=== PATIENT | female | born 1980 | race African-American/Black ===

== ENCOUNTER 2016-11-05 05:39 | Emergency (ER) | payer MEDICAID ==
[~2016-11-05] VITALS: Ht 167.6 cm; Wt 93.0 kg
[~2016-11-05 05:39] MED LIST: BELLELX2; IBU800T; OME20GT PO
[2016-11-05] MEDS ORDERED: KETOROLAC TROMETH 60MG/2ML VIAL IM ONE (06:00)
[2016-11-05] MEDS ORDERED: HYDROcodone-ACET 10/325MG TAB PO ONE (06:00)
[2016-11-05 06:20] VITALS: BP 150/103
== END 2016-11-05 06:42 | disposition home or self-care (01) ==
LOC: ER 05:44
DX: S80.02XA Contusion of left knee, initial encounter (principal); M54.9 Dorsalgia, unspecified; M54.2 Cervicalgia; I10 Essential (primary) hypertension; Z88.6 Allergy status to analgesic agent; Z88.8 Allergy status to other drugs, medicaments and biological substances; Z87.442 Personal history of urinary calculi; Z87.440 Personal history of urinary (tract) infections; Z79.899 Other long term (current) drug therapy; V43.52XA Car driver injured in collision with other type car in traffic accident, initial encounter; Y93.89 Activity, other specified; Y92.89 Other specified places as the place of occurrence of the external cause; Y99.8 Other external cause status
CPT/HCPCS: 96372; 99283; J1885

== ENCOUNTER 2016-11-05 09:08 | Emergency (ER) | payer MEDICAID ==
[~2016-11-05] VITALS: Ht 167.6 cm; Wt 93.0 kg
[2016-11-05 09:14] VITALS: BP 168/114
== END 2016-11-05 09:36 | disposition left against medical advice (07) ==
LOC: ER 09:11
DX: H53.8 Other visual disturbances (principal); F41.9 Anxiety disorder, unspecified; Z53.21 Procedure and treatment not carried out due to patient leaving prior to being seen by health care provider; V89.2XXA Person injured in unspecified motor-vehicle accident, traffic, initial encounter; Y93.89 Activity, other specified; Y99.8 Other external cause status; Y92.89 Other specified places as the place of occurrence of the external cause

== ENCOUNTER 2022-06-22 19:38 | Emergency (ER) | payer MEDICAID ==
[~2022-06-22] VITALS: Ht 167.6 cm; Wt 170.0 kg
[~2022-06-22 19:38] MED LIST changes: -BELLELX2; +PHEN1ELX6
[2022-06-22 19:53] VITALS: BP 146/85
[2022-06-22 21:12] LABS: Basophils # (auto) 0.1 10 ^3/uL (0-0.2); Basophils % (auto) 0.4 % (0.0-2.0); Eosinophils # (auto) 0 10 ^3/uL (0-0.8); Hemoglobin 16.4 g/dL (12.2-16.2); Lymphocytes # (auto) 1.8 10 ^3/uL (0.4-5.4); Lymphocytes % (auto) 12.6 % (10.0-50.0); Mean Corpuscular Hemoglobin 30.5 pg (28.0-32.0); Mean Corpuscular Hgb Conc. 34.8 g/dL (32.0-36.0); Mean Corpuscular Volume 87.6 fL (80.0-100.0); Monocytes # (auto) 0.9 10 ^3/uL (0-1.3); Neutrophils # (auto) 11.4 10 ^3/uL (1.6-8.6); Nucleated Red Blood Cells % 0.1 %; Red Blood Cells 5.37 10^6/uL (4.0-5.20); Red Cell Distribution Width 15.6 % (11.8-14.3); White Blood Cell 14.1 10^3/uL (4.4-10.8)
[2022-06-22 21:23] LABS: Urine Bacteria NONE SEEN /hpf (None Seen); Urine Blood Negative /uL (Negative); Urine Mucus FEW (None Seen); Urine WBC 18 /hpf (0 - 5)
[2022-06-22 21:30] LABS: Albumin 3.4 g/dL (3.4-5.0); BUN/Creatinine Ratio 9.4; Calcium 9.5 mg/dL (8.5-10.1); Potassium 3.2 mmol/L (3.5-5.1)
[2022-06-22 21:33] LABS: Bilirubin, Total 0.4 mg/dL (0.2-1.0); Total Protein 8.6 g/dL (6.4-8.2)
[2022-06-23] MEDS ORDERED: ONDA-144 PO (17:27)
[2022-06-23] MEDS ORDERED: PANT40TA2 PO (17:27)
[2022-06-24] MEDS ORDERED: CLON0.2T PO (20:25)
== END 2022-06-23 05:55 | disposition left against medical advice (07) ==
LOC: EDBD 19:38 → ER 19:38
DX: R10.9 Unspecified abdominal pain (principal); R11.2 Nausea with vomiting, unspecified; R05.9 Cough, unspecified; R53.1 Weakness; Z53.21 Procedure and treatment not carried out due to patient leaving prior to being seen by health care provider
CPT/HCPCS: 36415; 80053; 81001; 81025; 83690; 85025

== ENCOUNTER 2022-06-23 11:07 | Inpatient (IN) | payer MEDICAID ==
[~2022-06-23] VITALS: Ht 162.6 cm; Wt 85.0 kg
[2022-06-23] MEDS ORDERED: ONDANSETRON HCL 4 MG/2 ML VIAL IV ONE ×2 (11:45→21:00)
[2022-06-23] MEDS ORDERED: SODIUM CHLORIDE 0.9% 1,000 ML IV ONE ×2 (11:45→20:30)
[2022-06-23] MEDS ORDERED: MORPHINE SULFATE 4 MG/ML SYR/VIAL IV ONE (11:45)
[2022-06-23] MEDS ORDERED: KETOROLAC TROMETH 30 MG/ML 1ML VIAL IV ONE (14:00)
[2022-06-23] MEDS ORDERED: PANT40TA2 PO (17:27)
[2022-06-23] MEDS ORDERED: ONDA-144 PO (17:27)
[2022-06-23] MEDS ORDERED: ACETAMINOPHEN 325 MG TAB PO PRN (22:30)
[2022-06-23] MEDS ORDERED: SODIUM CHLORIDE 0.9% 1,000 ML IV SCH (22:30)
[2022-06-23] MEDS ORDERED: HYDROcodone-ACET 5/325MG TAB PO PRN (22:30)
[2022-06-23] MEDS: FAMOTIDINE (10MG/ML) 2ML VL IV SCH (22:40)
[2022-06-23] MEDS: MORPHINE SULFATE INJ 2 MG/ml SYRG IV PRN (22:41)
[2022-06-23 23:17] LABS: Basophils # (auto) 0 10 ^3/uL (0-0.2); Basophils % (auto) 0.2 % (0.0-2.0); Eosinophils # (auto) 0 10 ^3/uL (0-0.8); Hematocrit 45.2 % (36.0-46.0); Hemoglobin 14.9 g/dL (12.2-16.2); Lymphocytes # (auto) 2.1 10 ^3/uL (0.4-5.4); Lymphocytes % (auto) 14.2 % (10.0-50.0); Mean Corpuscular Hemoglobin 29.8 pg (28.0-32.0); Mean Corpuscular Hgb Conc. 32.9 g/dL (32.0-36.0); Mean Corpuscular Volume 90.5 fL (80.0-100.0); Monocytes # (auto) 2.2 10 ^3/uL (0-1.3); Monocytes % (auto) 14.8 % (0.0-12.0); Neutrophils # (auto) 10.5 10 ^3/uL (1.6-8.6); Neutrophils % (auto) 70.8 % (37.0-80.0); Nucleated Red Blood Cells % 0.1 %; Red Cell Distribution Width 15.5 % (11.8-14.3); White Blood Cell 14.8 10^3/uL (4.4-10.8)
[2022-06-23 23:33] LABS: Albumin 3.1 g/dL (3.4-5.0); Calcium 8.8 mg/dL (8.5-10.1); Potassium 3.3 mmol/L (3.5-5.1)
[2022-06-23 23:35] LABS: BUN/Creatinine Ratio 13.4
[2022-06-23 23:36] LABS: Bilirubin, Total 0.5 mg/dL (0.2-1.0); Total Protein 7.5 g/dL (6.4-8.2)
[2022-06-23] MEDS ORDERED: NITROGLYCERIN 0.4 MG SL TAB SL PRN (23:45)
[2022-06-23] MEDS ORDERED: MORPHINE SULFATE INJ 2 MG/ml SYRG IV PRN (23:45)
[2022-06-24 03:52] LABS: Urine Bacteria FEW /hpf (None Seen); Urine Blood Negative /uL (Negative); Urine Hyaline Cast FEW /lpf (0 - 2); Urine Mucus FEW (None Seen); Urine Specific Gravity 1.017 (1.001-1.035); Urine WBC 36 /hpf (0 - 5)
[2022-06-24] MEDS: ONDANSETRON HCL 4 MG/2 ML VIAL IV PRN ×3 (04:00→20:23)
[2022-06-24] MEDS: MORPHINE SULFATE INJ 2 MG/ml SYRG IV PRN ×2 (04:00→20:25)
[2022-06-24 04:03] LABS: Alcohol, Urine < 3.0 mg/dL (0-10); Amphetamine Screen, Urine NEGATIVE (NEGATIVE); Barbiturate Scree,Urine NEGATIVE (NEGATIVE); Benzodiazephine Screen, Urine NEGATIVE (NEGATIVE); Cannabinoid Screen, Urine NEGATIVE (NEGATIVE); Cocaine Screen, Urine NEGATIVE (NEGATIVE); Opiate Scree,Urine NEGATIVE (NEGATIVE); Phencyclidine Screen, Urine NEGATIVE (NEGATIVE)
[2022-06-24 07:54] LABS: Basophils # (auto) 0 10 ^3/uL (0-0.2); Basophils % (auto) 0.2 % (0.0-2.0); Eosinophils # (auto) 0 10 ^3/uL (0-0.8); Hematocrit 44.4 % (36.0-46.0); Hemoglobin 14.9 g/dL (12.2-16.2); Lymphocytes # (auto) 2.2 10 ^3/uL (0.4-5.4); Lymphocytes % (auto) 14.3 % (10.0-50.0); Mean Corpuscular Hemoglobin 29.9 pg (28.0-32.0); Mean Corpuscular Hgb Conc. 33.5 g/dL (32.0-36.0); Mean Corpuscular Volume 89.1 fL (80.0-100.0); Monocytes # (auto) 1.8 10 ^3/uL (0-1.3); Monocytes % (auto) 12.2 % (0.0-12.0); Neutrophils # (auto) 11.1 10 ^3/uL (1.6-8.6); Neutrophils % (auto) 73.3 % (37.0-80.0); Nucleated Red Blood Cells % 0.2 %; Red Blood Cells 4.98 10^6/uL (4.0-5.20); Red Cell Distribution Width 15.5 % (11.8-14.3); White Blood Cell 15.1 10^3/uL (4.4-10.8)
[2022-06-24 08:06] LABS: Albumin 3.1 g/dL (3.4-5.0); Calcium 8.6 mg/dL (8.5-10.1); Potassium 3.2 mmol/L (3.5-5.1)
[2022-06-24 08:12] LABS: BUN/Creatinine Ratio 11.1; Bilirubin, Total 0.6 mg/dL (0.2-1.0); Total Protein 7.2 g/dL (6.4-8.2)
[2022-06-24] MEDS: FAMOTIDINE (10MG/ML) 2ML VL IV SCH ×2 (09:57→22:00)
[2022-06-24] MEDS ORDERED: POTASSIUM CHL 20MEQ/100ML 100 ML IV ONE (11:30)
[2022-06-24] MEDS ORDERED: cefTRIAXone 1GM/50ML D5W 50 ML IV ONE (11:30)
[2022-06-24] MEDS: SODIUM CHLORIDE 0.9% 1,000 ML IV SCH ×3 (15:34→19:51)
[2022-06-24] MEDS: hydrALAZINE HCL 20 MG/ML VL IV PRN (18:24)
[2022-06-24 20:11] VITALS: BP 142/79
[2022-06-24] MEDS ORDERED: CLON0.2T PO (20:25)
[2022-06-24 22:00] VITALS: BP 149/88
[2022-06-25] MEDS: ONDANSETRON HCL 4 MG/2 ML VIAL IV PRN ×4 (01:21→15:05)
[2022-06-25] MEDS: MORPHINE SULFATE INJ 2 MG/ml SYRG IV PRN ×5 (01:22→23:28)
[2022-06-25] MEDS: SODIUM CHLORIDE 0.9% 1,000 ML IV SCH ×3 (01:32→21:24)
[2022-06-25 05:00] VITALS: BP 145/75
[2022-06-25 06:05] LABS: Hematocrit 38.7 % (36.0-46.0); Hemoglobin 13.6 g/dL (12.2-16.2); Mean Corpuscular Hemoglobin 29.9 pg (28.0-32.0); Mean Corpuscular Hgb Conc. 35.1 g/dL (32.0-36.0); Mean Corpuscular Volume 85.2 fL (80.0-100.0); Red Blood Cells 4.54 10^6/uL (4.0-5.20); Red Cell Distribution Width 15.4 % (11.8-14.3); White Blood Cell 13.7 10^3/uL (4.4-10.8)
[2022-06-25 06:17] LABS: Basophils % (manual) 0 (0.0-2.0); Blast Cells 0; Eosinophils % (manual) 0 (0-7); Metamyelocytes % 0; Promyelocytes % 0; Reactive Lymphocytes 0
[2022-06-25 06:36] LABS: BUN/Creatinine Ratio 6.9; Calcium 8.5 mg/dL (8.5-10.1); Magnesium 1.9 mg/dL (1.6-2.6)
[2022-06-25 07:31] LABS: Band Neutrophils % (manual) 2; Lymphocytes % (manual) 13 (10.0-50.0); Monocytes % (manual) 8 (0-12); Myelocytes % 1
[2022-06-25] MEDS: cefTRIAXone 1GM/50ML D5W 50 ML IV SCH (08:54)
[2022-06-25 09:00] VITALS: BP 153/90
[2022-06-25] MEDS ORDERED: SODIUM CHLORIDE 0.9% 1,000 ML IV ONE (09:30)
[2022-06-25] MEDS: POTASSIUM CHL 20MEQ/100ML 100 ML IV SCH ×2 (09:55→12:20)
[2022-06-25] MEDS: FAMOTIDINE (10MG/ML) 2ML VL IV SCH ×2 (10:00→21:25)
[2022-06-25 13:00] VITALS: BP 145/86
[2022-06-25 17:00] VITALS: BP 147/91
[2022-06-25] MEDS: PROMETHAZINE HCL 25 MG/ML 1ML IV PRN ×2 (18:45→23:29)
[2022-06-25 20:00] VITALS: BP 147/86
[2022-06-25 22:00] VITALS: BP 147/86
[2022-06-26 05:00] VITALS: BP 141/87
[2022-06-26] MEDS: PROMETHAZINE HCL 25 MG/ML 1ML IV PRN ×2 (07:04→14:34)
[2022-06-26] MEDS: SODIUM CHLORIDE 0.9% 1,000 ML IV SCH ×4 (07:05→23:30)
[2022-06-26] MEDS: MORPHINE SULFATE INJ 2 MG/ml SYRG IV PRN ×2 (07:05→19:52)
[2022-06-26 07:30] LABS: Hematocrit 39.3 % (36.0-46.0); Hemoglobin 13.6 g/dL (12.2-16.2); Mean Corpuscular Hemoglobin 29.9 pg (28.0-32.0); Mean Corpuscular Hgb Conc. 34.6 g/dL (32.0-36.0); Mean Corpuscular Volume 86.4 fL (80.0-100.0); Red Blood Cells 4.55 10^6/uL (4.0-5.20); Red Cell Distribution Width 15.6 % (11.8-14.3); White Blood Cell 12.5 10^3/uL (4.4-10.8)
[2022-06-26 07:48] LABS: Basophils % (manual) 0 (0.0-2.0); Blast Cells 0; Metamyelocytes % 0; Promyelocytes % 0; Reactive Lymphocytes 0
[2022-06-26 07:49] LABS: BUN/Creatinine Ratio 5.2; Calcium 8.7 mg/dL (8.5-10.1); Magnesium 2.2 mg/dL (1.6-2.6); Potassium 3.1 mmol/L (3.5-5.1)
[2022-06-26 09:00] VITALS: BP 151/81
[2022-06-26 09:03] LABS: Band Neutrophils % (manual) 9; Eosinophils % (manual) 1 (0-7); Lymphocytes % (manual) 24 (10.0-50.0); Monocytes % (manual) 8 (0-12); Myelocytes % 1
[2022-06-26] MEDS: FAMOTIDINE (10MG/ML) 2ML VL IV SCH ×2 (09:56→22:00)
[2022-06-26] MEDS: hydrALAZINE HCL 20 MG/ML VL IV PRN (09:56)
[2022-06-26] MEDS: cefTRIAXone 1GM/50ML D5W 50 ML IV SCH (09:56)
[2022-06-26] MEDS: POTASSIUM CHL 20MEQ/100ML 100 ML IV SCH ×2 (12:47→17:19)
[2022-06-26 12:52] VITALS: BP 156/86
[2022-06-26 17:00] VITALS: BP 149/107
[2022-06-26] MEDS ORDERED: POTASSIUM CHL 20MEQ/100ML 100 ML IV ONE (17:18)
[2022-06-26] MEDS ORDERED: METOPROLOL TARTRATE 1MG/1ML-5ML VIAL IV PRN (18:15)
[2022-06-26 22:00] VITALS: BP 141/96
[2022-06-27] MEDS: PROMETHAZINE HCL 25 MG/ML 1ML IV PRN (03:41)
[2022-06-27] MEDS: MORPHINE SULFATE INJ 2 MG/ml SYRG IV PRN ×2 (03:42→21:02)
[2022-06-27 04:58] VITALS: BP_SYST 139; BP_SYST 155; BP_DIAS 84; BP_DIAS 97
[2022-06-27 06:18] LABS: Hemoglobin 14.2 g/dL (12.2-16.2)
[2022-06-27 06:21] LABS: Hematocrit 39.8 % (36.0-46.0); Mean Corpuscular Hemoglobin 30.5 pg (28.0-32.0); Mean Corpuscular Hgb Conc. 35.6 g/dL (32.0-36.0); Mean Corpuscular Volume 85.7 fL (80.0-100.0); Red Blood Cells 4.65 10^6/uL (4.0-5.20); Red Cell Distribution Width 15.7 % (11.8-14.3); White Blood Cell 11.6 10^3/uL (4.4-10.8)
[2022-06-27 06:26] LABS: Basophils % (manual) 0 (0.0-2.0); Blast Cells 0; Eosinophils % (manual) 0 (0-7); Metamyelocytes % 0; Myelocytes % 0; Promyelocytes % 0
[2022-06-27 06:47] LABS: BUN/Creatinine Ratio 5.4; Calcium 8.6 mg/dL (8.5-10.1); Magnesium 1.9 mg/dL (1.6-2.6); Potassium 3.1 mmol/L (3.5-5.1)
[2022-06-27] MEDS: SODIUM CHLORIDE 0.9% 1,000 ML IV SCH ×3 (06:58→20:58)
[2022-06-27 08:00] VITALS: BP 151/95
[2022-06-27] MEDS ORDERED: LIDOCAINE VISCOUS 2% 15ML UD ONE (08:05)
[2022-06-27] MEDS ORDERED: NALOXONE HCL 0.4 MG/ML VIAL ONE (08:05)
[2022-06-27] MEDS ORDERED: FLUMAZENIL 0.1 MG/ML INJ 10ML MDV IV ONE (08:05)
[2022-06-27] MEDS: fentaNYL CITRATE 100 MCG/2 ML VL ONE ×2 (09:23→09:26)
[2022-06-27] MEDS: MIDAZOLAM HCL 2MG/2ML 2ml VIAL (1mg/ml) ONE ×2 (09:23→09:26)
[2022-06-27] MEDS: diphenhdrAMINE HCL 50 MG/1 ML VL ONE ×2 (09:23→09:25)
[2022-06-27 09:25] LABS: Band Neutrophils % (manual) 4; Lymphocytes % (manual) 15 (10.0-50.0); Monocytes % (manual) 8 (0-12); Reactive Lymphocytes 3
[2022-06-27] MEDS: cefTRIAXone 1GM/50ML D5W 50 ML IV SCH (09:59)
[2022-06-27] MEDS: FAMOTIDINE (10MG/ML) 2ML VL IV SCH ×2 (10:00→21:05)
[2022-06-27] MEDS ORDERED: ceFAZolin 1GM/50ML 50 ML IV ONE (10:00)
[2022-06-27] MEDS ORDERED: FAMOTIDINE (10MG/ML) 2ML VL IV ONE (10:00)
[2022-06-27] MEDS ORDERED: LABETALOL HCL 5 MG/ML 4ML SYRINGE IV PRN (11:00)
[2022-06-27 12:00] VITALS: BP 148/84
[2022-06-27] MEDS: SUCRALFATE 1 GM/10 ML ORAL SUSP PO SCH ×3 (12:24→21:02)
[2022-06-27] MEDS: METOCLOPRAMIDE HCL 5MG/ml INJ 2ml VIAL IV SCH ×2 (14:54→21:01)
[2022-06-27 16:00] VITALS: BP 151/99
[2022-06-27] MEDS: PANTOPRAZOLE 40 MG/10 ML VIAL INJ IV SCH (21:01)
[2022-06-27 22:00] VITALS: BP 153/96
[2022-06-28] MEDS: PROMETHAZINE HCL 25 MG/ML 1ML IV PRN ×2 (01:06→06:40)
[2022-06-28 05:00] VITALS: BP 139/93
[2022-06-28 05:07] LABS: Basophils # (auto) 0 10 ^3/uL (0-0.2); Basophils % (auto) 0.2 % (0.0-2.0); Eosinophils # (auto) 0 10 ^3/uL (0-0.8); Lymphocytes # (auto) 2.9 10 ^3/uL (0.4-5.4); Monocytes # (auto) 1.2 10 ^3/uL (0-1.3)
[2022-06-28 05:08] LABS: Eosinophils % (auto) 0.3 % (0.0-7.0); Hemoglobin 14.5 g/dL (12.2-16.2); Lymphocytes % (auto) 20.3 % (10.0-50.0); Mean Corpuscular Hemoglobin 30.5 pg (28.0-32.0); Mean Corpuscular Hgb Conc. 36.2 g/dL (32.0-36.0); Mean Corpuscular Volume 84.4 fL (80.0-100.0); Monocytes % (auto) 8.2 % (0.0-12.0); Neutrophils # (auto) 10.2 10 ^3/uL (1.6-8.6); Nucleated Red Blood Cells % 0.3 %; Red Blood Cells 4.74 10^6/uL (4.0-5.20); Red Cell Distribution Width 15.6 % (11.8-14.3); White Blood Cell 14.4 10^3/uL (4.4-10.8)
[2022-06-28 05:22] LABS: Calcium 8.1 mg/dL (8.5-10.1)
[2022-06-28 05:28] LABS: BUN/Creatinine Ratio 6.8
[2022-06-28 05:45] LABS: Potassium 2.8 mmol/L (3.5-5.1)
[2022-06-28] MEDS: SODIUM CHLORIDE 0.9% 1,000 ML IV SCH ×2 (05:48→08:50)
[2022-06-28] MEDS: METOCLOPRAMIDE HCL 5MG/ml INJ 2ml VIAL IV SCH ×3 (05:48→22:10)
[2022-06-28] MEDS ORDERED: POTASSIUM CHL 20 Meq TABLET PO ONE (06:15)
[2022-06-28] MEDS: SUCRALFATE 1 GM/10 ML ORAL SUSP PO SCH ×4 (06:41→21:25)
[2022-06-28 08:00] VITALS: BP 155/92
[2022-06-28 09:00] VITALS: BP 154/104
[2022-06-28] MEDS ORDERED: amLODIPine BESYLATE 5 MG TAB PO SCH (10:00)
[2022-06-28] MEDS: NIFEdipine ER 30 MG TAB PO SCH (10:00)
[2022-06-28] MEDS: FAMOTIDINE (10MG/ML) 2ML VL IV SCH (10:00)
[2022-06-28] MEDS: cefTRIAXone 1GM/50ML D5W 50 ML IV SCH (10:24)
[2022-06-28] MEDS: PANTOPRAZOLE 40 MG/10 ML VIAL INJ IV SCH ×2 (10:24→21:29)
[2022-06-28] MEDS: MORPHINE SULFATE INJ 2 MG/ml SYRG IV PRN (10:25)
[2022-06-28] MEDS ORDERED: THROAT LOZENGES(CEPASTAT) MT PRN (11:00)
[2022-06-28 12:00] VITALS: BP 124/76
[2022-06-28] MEDS ORDERED: methylPREDNISolone SOD SUCC 125 MG/2 ML VL IV ONE (14:45)
[2022-06-28] MEDS ORDERED: FAMOTIDINE (10MG/ML) 2ML VL IV ONE (14:45)
[2022-06-28] MEDS: POTASSIUM CHLORIDE 40 MEQ in SOD CHL 0.45% 1,000 ML IV SCH ×2 (15:37→23:25)
[2022-06-28] MEDS: diphenhdrAMINE HCL 50 MG/1 ML VL IV PRN ×2 (15:37→21:25)
[2022-06-28 16:00] VITALS: BP 155/98
[2022-06-28 17:10] LABS: Urine Bacteria FEW /hpf (None Seen); Urine Blood Negative /uL (Negative); Urine Specific Gravity 1.009 (1.001-1.035); Urine WBC 4 /hpf (0 - 5)
[2022-06-28] MEDS: MEROPENEM 1GM IVPB 100 ML IV SCH (21:31)
[2022-06-28 22:23] VITALS: BP 147/89
[2022-06-29 04:36] VITALS: BP 139/103
[2022-06-29] MEDS: MEROPENEM 1GM IVPB 100 ML IV SCH ×3 (05:17→22:24)
[2022-06-29 05:26] LABS: Basophils # (auto) 0.1 10 ^3/uL (0-0.2); Basophils % (auto) 0.4 % (0.0-2.0); Eosinophils # (auto) 0 10 ^3/uL (0-0.8); Hematocrit 40.4 % (36.0-46.0); Monocytes # (auto) 1.5 10 ^3/uL (0-1.3)
[2022-06-29] MEDS: METOCLOPRAMIDE HCL 5MG/ml INJ 2ml VIAL IV SCH ×3 (05:30→22:24)
[2022-06-29] MEDS: SUCRALFATE 1 GM/10 ML ORAL SUSP PO SCH ×4 (05:30→22:24)
[2022-06-29 05:35] LABS: Hemoglobin 14.4 g/dL (12.2-16.2); Lymphocytes # (auto) 2.4 10 ^3/uL (0.4-5.4); Lymphocytes % (auto) 15.6 % (10.0-50.0); Mean Corpuscular Hemoglobin 30.5 pg (28.0-32.0); Mean Corpuscular Hgb Conc. 35.6 g/dL (32.0-36.0); Mean Corpuscular Volume 85.6 fL (80.0-100.0); Monocytes % (auto) 9.3 % (0.0-12.0); Neutrophils # (auto) 11.7 10 ^3/uL (1.6-8.6); Neutrophils % (auto) 74.7 % (37.0-80.0); Nucleated Red Blood Cells % 0.2 %; Red Blood Cells 4.72 10^6/uL (4.0-5.20); Red Cell Distribution Width 15.3 % (11.8-14.3); White Blood Cell 15.7 10^3/uL (4.4-10.8)
[2022-06-29 05:47] LABS: BUN/Creatinine Ratio 9.6; Calcium 8.5 mg/dL (8.5-10.1); Magnesium 1.9 mg/dL (1.6-2.6); Potassium 3.9 mmol/L (3.5-5.1)
[2022-06-29] MEDS: diphenhdrAMINE HCL 50 MG/1 ML VL IV PRN ×3 (06:33→20:51)
[2022-06-29 08:00] VITALS: BP 158/102
[2022-06-29] MEDS: PANTOPRAZOLE 40 MG/10 ML VIAL INJ IV SCH ×2 (09:57→22:24)
[2022-06-29] MEDS: POTASSIUM CHLORIDE 40 MEQ in SOD CHL 0.45% 1,000 ML IV SCH ×3 (09:57→23:55)
[2022-06-29] MEDS: NIFEdipine ER 30 MG TAB PO SCH (09:57)
[2022-06-29 09:58] VITALS: BP 158/102
[2022-06-29 13:00] VITALS: BP 176/102
[2022-06-29] MEDS ORDERED: METOPROLOL SUCCINATE XL 50 MG TAB PO SCH (13:15)
[2022-06-29 17:00] VITALS: BP 131/89
[2022-06-29] MEDS: PROMETHAZINE HCL 25 MG/ML 1ML IV PRN (20:50)
[2022-06-29] MEDS: MORPHINE SULFATE INJ 2 MG/ml SYRG IV PRN (22:27)
[2022-06-29 22:31] VITALS: BP 146/98
[2022-06-30 05:00] VITALS: BP 145/100
[2022-06-30] MEDS: MORPHINE SULFATE INJ 2 MG/ml SYRG IV PRN ×3 (05:02→23:06)
[2022-06-30] MEDS: MEROPENEM 1GM IVPB 100 ML IV SCH ×3 (05:02→22:18)
[2022-06-30] MEDS: SUCRALFATE 1 GM/10 ML ORAL SUSP PO SCH ×4 (05:44→22:38)
[2022-06-30] MEDS: PROMETHAZINE HCL 25 MG/ML 1ML IV PRN (05:44)
[2022-06-30] MEDS: METOCLOPRAMIDE HCL 5MG/ml INJ 2ml VIAL IV SCH ×3 (05:44→22:38)
[2022-06-30 05:45] LABS: Basophils # (auto) 0.1 10 ^3/uL (0-0.2); Eosinophils # (auto) 0.1 10 ^3/uL (0-0.8); Eosinophils % (auto) 0.4 % (0.0-7.0); Monocytes # (auto) 1.7 10 ^3/uL (0-1.3)
[2022-06-30 06:03] LABS: Potassium 3.7 mmol/L (3.5-5.1)
[2022-06-30 06:10] LABS: Albumin 3.2 g/dL (3.4-5.0); BUN/Creatinine Ratio 7.7; Bilirubin, Total 0.5 mg/dL (0.2-1.0); Calcium 8.5 mg/dL (8.5-10.1); Total Protein 6.9 g/dL (6.4-8.2)
[2022-06-30 06:15] LABS: Basophils % (auto) 0.7 % (0.0-2.0); Hematocrit 46.8 % (36.0-46.0); Hemoglobin 16.4 g/dL (12.2-16.2); Lymphocytes # (auto) 4.1 10 ^3/uL (0.4-5.4); Lymphocytes % (auto) 26.2 % (10.0-50.0); Mean Corpuscular Hemoglobin 30.7 pg (28.0-32.0); Mean Corpuscular Volume 87.7 fL (80.0-100.0); Neutrophils # (auto) 9.7 10 ^3/uL (1.6-8.6); Neutrophils % (auto) 61.7 % (37.0-80.0); Nucleated Red Blood Cells % 0.8 %; Red Blood Cells 5.34 10^6/uL (4.0-5.20); Red Cell Distribution Width 16.1 % (11.8-14.3); White Blood Cell 15.6 10^3/uL (4.4-10.8)
[2022-06-30 08:10] VITALS: BP 137/100
[2022-06-30] MEDS: POTASSIUM CHLORIDE 40 MEQ in SOD CHL 0.45% 1,000 ML IV SCH ×2 (09:21→12:56)
[2022-06-30] MEDS ORDERED: METOPROLOL SUCCINATE XL 50 MG TAB PO SCH (10:00)
[2022-06-30] MEDS: PANTOPRAZOLE 40 MG/10 ML VIAL INJ IV SCH ×2 (10:13→22:22)
[2022-06-30] MEDS: diphenhdrAMINE HCL 50 MG/1 ML VL IV PRN ×2 (10:14→17:29)
[2022-06-30] MEDS: NIFEdipine ER 30 MG TAB PO SCH (10:14)
[2022-06-30 12:15] VITALS: BP 123/90
[2022-06-30 16:10] VITALS: BP 144/60
[2022-06-30 17:28] LABS: Cholesterol 171 mg/dL (< 200); HDL Cholesterol 44 mg/dL (40-59); LDL Cholesterol 101 mg/dL (< 100); Triglycerides 198 mg/dL (< 150)
[2022-06-30] MEDS: MAGNESIUM OXIDE 400 MG TAB PO SCH (22:00)
[2022-06-30 23:16] VITALS: BP 133/92
[2022-07-01] MEDS: POTASSIUM CHLORIDE 40 MEQ in SOD CHL 0.45% 1,000 ML IV SCH ×2 (00:44→13:01)
[2022-07-01 04:46] VITALS: BP 139/99
[2022-07-01] MEDS: METOCLOPRAMIDE HCL 5MG/ml INJ 2ml VIAL IV SCH ×3 (06:13→21:56)
[2022-07-01] MEDS: MEROPENEM 1GM IVPB 100 ML IV SCH ×3 (06:13→22:03)
[2022-07-01] MEDS: MORPHINE SULFATE INJ 2 MG/ml SYRG IV PRN ×2 (06:14→20:01)
[2022-07-01 06:37] LABS: Potassium 3.7 mmol/L (3.5-5.1)
[2022-07-01 06:43] LABS: Albumin 2.8 g/dL (3.4-5.0); BUN/Creatinine Ratio 15.9; Calcium 8.6 mg/dL (8.5-10.1)
[2022-07-01 06:45] LABS: Bilirubin, Total 0.5 mg/dL (0.2-1.0); Total Protein 7.1 g/dL (6.4-8.2)
[2022-07-01 08:10] VITALS: BP 134/88
[2022-07-01] MEDS: SUCRALFATE 1 GM/10 ML ORAL SUSP PO SCH ×4 (08:42→21:56)
[2022-07-01 09:00] VITALS: BP 134/86
[2022-07-01] MEDS: PANTOPRAZOLE 40 MG/10 ML VIAL INJ IV SCH ×2 (09:38→21:56)
[2022-07-01] MEDS ORDERED: METH10T PO (10:27)
[2022-07-01] MEDS ORDERED: IOHEXOL 350 MG/ML 100ML IJ ONE (11:09)
[2022-07-01 12:37] VITALS: BP 126/85
[2022-07-01] MEDS: MAGNESIUM OXIDE 400 MG TAB PO SCH ×2 (12:54→21:56)
[2022-07-01] MEDS: NIFEdipine ER 30 MG TAB PO SCH (12:54)
[2022-07-01] MEDS: METHADONE HCL 10 MG TAB PO SCH (12:58)
[2022-07-01] MEDS: METOPROLOL SUCCINATE XL 50 MG TAB PO SCH ×2 (12:58→13:02)
[2022-07-01] MEDS ORDERED: DEXTROSE (50%) 50ML SYRG IV ONE (14:30)
[2022-07-01 15:43] VITALS: BP 128/88
[2022-07-01] MEDS ORDERED: DEXTROSE (50%) 50ML SYRG IV PRN (16:00)
[2022-07-01] MEDS: ACCU-CHEK COMFORT CURVE STRIP VI SCH ×2 (16:55→22:04)
[2022-07-01] MEDS: InsuLIN REG 1unit/0.01ml Soln (100units/ml) SC SCH ×2 (16:55→22:00)
[2022-07-01] MEDS: diphenhdrAMINE HCL 50 MG/1 ML VL IV PRN (20:01)
[2022-07-01 22:00] VITALS: BP 127/92
[2022-07-01] MEDS ORDERED: ATORVASTATIN 20 MG TAB PO SCH (22:00)
[2022-07-02] MEDS: MORPHINE SULFATE INJ 2 MG/ml SYRG IV PRN (01:56)
[2022-07-02] MEDS: POTASSIUM CHLORIDE 40 MEQ in SOD CHL 0.45% 1,000 ML IV SCH (02:15)
[2022-07-02] MEDS: diphenhdrAMINE HCL 50 MG/1 ML VL IV PRN ×3 (02:51→18:35)
[2022-07-02] MEDS: PROMETHAZINE HCL 25 MG/ML 1ML IV PRN (02:51)
[2022-07-02 05:00] VITALS: BP 129/93
[2022-07-02 06:04] LABS: Basophils # (auto) 0.1 10 ^3/uL (0-0.2); Basophils % (auto) 0.3 % (0.0-2.0); Eosinophils # (auto) 0.1 10 ^3/uL (0-0.8); Eosinophils % (auto) 0.4 % (0.0-7.0); Hematocrit 46.4 % (36.0-46.0); Hemoglobin 15.3 g/dL (12.2-16.2); Lymphocytes # (auto) 3.4 10 ^3/uL (0.4-5.4); Lymphocytes % (auto) 21.8 % (10.0-50.0); Mean Corpuscular Hemoglobin 29.9 pg (28.0-32.0); Mean Corpuscular Volume 90.4 fL (80.0-100.0); Monocytes # (auto) 1.4 10 ^3/uL (0-1.3); Monocytes % (auto) 9.3 % (0.0-12.0); Neutrophils # (auto) 10.6 10 ^3/uL (1.6-8.6); Neutrophils % (auto) 68.2 % (37.0-80.0); Nucleated Red Blood Cells % 0.2 %; Red Blood Cells 5.13 10^6/uL (4.0-5.20); Red Cell Distribution Width 16.5 % (11.8-14.3); White Blood Cell 15.6 10^3/uL (4.4-10.8)
[2022-07-02] MEDS: METOCLOPRAMIDE HCL 5MG/ml INJ 2ml VIAL IV SCH ×2 (06:11→13:28)
[2022-07-02] MEDS: MEROPENEM 1GM IVPB 100 ML IV SCH ×3 (06:11→22:46)
[2022-07-02] MEDS: ACCU-CHEK COMFORT CURVE STRIP VI SCH ×4 (06:12→22:00)
[2022-07-02] MEDS: SUCRALFATE 1 GM/10 ML ORAL SUSP PO SCH ×4 (06:12→22:47)
[2022-07-02] MEDS: InsuLIN REG 1unit/0.01ml Soln (100units/ml) SC SCH ×2 (06:12→11:30)
[2022-07-02 06:34] LABS: Potassium 4.4 mmol/L (3.5-5.1)
[2022-07-02 07:04] LABS: BUN/Creatinine Ratio 20.3; Calcium 8.8 mg/dL (8.5-10.1)
[2022-07-02 09:00] VITALS: BP 150/78
[2022-07-02] MEDS: PANTOPRAZOLE 40 MG/10 ML VIAL INJ IV SCH ×2 (10:10→22:46)
[2022-07-02] MEDS: METHADONE HCL 10 MG TAB PO SCH (10:10)
[2022-07-02] MEDS: MAGNESIUM OXIDE 400 MG TAB PO SCH (10:10)
[2022-07-02] MEDS: NIFEdipine ER 30 MG TAB PO SCH (10:11)
[2022-07-02] MEDS: METOPROLOL SUCCINATE XL 50 MG TAB PO SCH (10:11)
[2022-07-02 13:00] VITALS: BP 134/77
[2022-07-02] MEDS ORDERED: IBUPROFEN 600 MG TAB PO ONE (16:15)
[2022-07-02] MEDS ORDERED: FLUCONAZOLE 100 MG TAB PO ONE (16:15)
[2022-07-02 17:00] VITALS: BP 115/81
[2022-07-02 22:00] VITALS: BP 90/58
[2022-07-02] MEDS: IBUPROFEN 600 MG TAB PO SCH (22:47)
[2022-07-03] MEDS: diphenhdrAMINE HCL 50 MG/1 ML VL IV PRN ×3 (04:35→13:26)
[2022-07-03 05:00] VITALS: BP_SYST 120; BP_SYST 91; BP_DIAS 59; BP_DIAS 78
[2022-07-03] MEDS: ACCU-CHEK COMFORT CURVE STRIP VI SCH ×4 (06:03→22:00)
[2022-07-03] MEDS: SUCRALFATE 1 GM/10 ML ORAL SUSP PO SCH ×4 (06:05→22:01)
[2022-07-03] MEDS: MEROPENEM 1GM IVPB 100 ML IV SCH ×3 (06:06→22:00)
[2022-07-03 09:00] VITALS: BP 90/54
[2022-07-03] MEDS ORDERED: FLUCONAZOLE 100 MG TAB PO SCH (10:00)
[2022-07-03] MEDS: IBUPROFEN 600 MG TAB PO SCH ×2 (10:00→22:01)
[2022-07-03] MEDS: NIFEdipine ER 30 MG TAB PO SCH (10:00)
[2022-07-03] MEDS: METOPROLOL SUCCINATE XL 50 MG TAB PO SCH (10:00)
[2022-07-03 10:48] LABS: Basophils # (auto) 0.1 10 ^3/uL (0-0.2); Basophils % (auto) 0.5 % (0.0-2.0); Eosinophils # (auto) 0.2 10 ^3/uL (0-0.8); Eosinophils % (auto) 1.3 % (0.0-7.0); Hemoglobin 12.2 g/dL (12.2-16.2); Lymphocytes # (auto) 3.7 10 ^3/uL (0.4-5.4); Lymphocytes % (auto) 31.1 % (10.0-50.0); Mean Corpuscular Hemoglobin 29.6 pg (28.0-32.0); Mean Corpuscular Hgb Conc. 32.9 g/dL (32.0-36.0); Mean Corpuscular Volume 89.8 fL (80.0-100.0); Monocytes # (auto) 1.3 10 ^3/uL (0-1.3); Monocytes % (auto) 10.9 % (0.0-12.0); Neutrophils # (auto) 6.7 10 ^3/uL (1.6-8.6); Neutrophils % (auto) 56.2 % (37.0-80.0); Nucleated Red Blood Cells % 0.1 %; Red Blood Cells 4.13 10^6/uL (4.0-5.20); White Blood Cell 11.9 10^3/uL (4.4-10.8)
[2022-07-03] MEDS: PANTOPRAZOLE 40 MG/10 ML VIAL INJ IV SCH ×2 (11:19→22:00)
[2022-07-03] MEDS: METHADONE HCL 10 MG TAB PO SCH (11:25)
[2022-07-03 13:00] VITALS: BP 90/57
[2022-07-03] MEDS ORDERED: LORATADINE 10 MG TAB PO ONE (15:45)
[2022-07-03 17:00] VITALS: BP 103/58
[2022-07-03] MEDS ORDERED: MICONAZOLE NITRATE 2 % VAGINAL CREAM 45 GM PV PRN (19:30)
[2022-07-03 20:00] VITALS: BP 102/64
[2022-07-03 22:00] VITALS: BP 102/64
[2022-07-03] MEDS ORDERED: MICONAZOLE NITRATE 2 % VAGINAL CREAM 45 GM PV SCH (22:00)
[2022-07-04] MEDS ORDERED: diphenhdrAMINE HCL 25 MG CAP PO PRN (01:00)
[2022-07-04 05:00] VITALS: BP 155/73
[2022-07-04] MEDS ORDERED: ONDANSETRON HCL 4 MG/2 ML VIAL IV PRN (05:45)
[2022-07-04] MEDS: MEROPENEM 1GM IVPB 100 ML IV SCH ×3 (05:55→21:44)
[2022-07-04] MEDS: SUCRALFATE 1 GM/10 ML ORAL SUSP PO SCH ×4 (06:39→21:36)
[2022-07-04] MEDS: ACCU-CHEK COMFORT CURVE STRIP VI SCH ×4 (06:42→21:45)
[2022-07-04 08:35] VITALS: BP 132/77
[2022-07-04] MEDS: LORATADINE 10 MG TAB PO SCH (10:00)
[2022-07-04] MEDS: IBUPROFEN 600 MG TAB PO SCH ×2 (10:00→21:45)
[2022-07-04 10:25] LABS: Potassium 3.8 mmol/L (3.5-5.1)
[2022-07-04] MEDS: METHADONE HCL 10 MG TAB PO SCH (10:29)
[2022-07-04] MEDS: PANTOPRAZOLE 40 MG/10 ML VIAL INJ IV SCH ×2 (10:29→21:36)
[2022-07-04] MEDS: hydrOXYzine HCL 10 MG TAB PO PRN ×2 (10:37→17:33)
[2022-07-04] MEDS: METOPROLOL SUCCINATE XL 50 MG TAB PO SCH (10:38)
[2022-07-04 13:00] VITALS: BP 124/83
[2022-07-04] MEDS: ALPRAZolam 0.25 MG TAB PO PRN ×2 (13:54→21:36)
[2022-07-04 16:40] VITALS: BP 112/75
[2022-07-04 22:00] VITALS: BP 134/85
[2022-07-05] MEDS: hydrOXYzine HCL 10 MG TAB PO PRN ×2 (01:55→09:25)
[2022-07-05 05:00] VITALS: BP 114/61
[2022-07-05 05:51] LABS: Potassium 4.1 mmol/L (3.5-5.1)
[2022-07-05 06:00] LABS: BUN/Creatinine Ratio 20.5; Calcium 8.9 mg/dL (8.5-10.1)
[2022-07-05 06:07] LABS: Basophils # (auto) 0.1 10 ^3/uL (0-0.2); Basophils % (auto) 0.5 % (0.0-2.0); Eosinophils # (auto) 0.1 10 ^3/uL (0-0.8); Eosinophils % (auto) 0.8 % (0.0-7.0); Hematocrit 38.4 % (36.0-46.0); Hemoglobin 12.8 g/dL (12.2-16.2); Lymphocytes # (auto) 3.5 10 ^3/uL (0.4-5.4); Lymphocytes % (auto) 26.2 % (10.0-50.0); Mean Corpuscular Hemoglobin 29.9 pg (28.0-32.0); Mean Corpuscular Hgb Conc. 33.3 g/dL (32.0-36.0); Mean Corpuscular Volume 89.9 fL (80.0-100.0); Monocytes # (auto) 1.4 10 ^3/uL (0-1.3); Monocytes % (auto) 10.2 % (0.0-12.0); Neutrophils # (auto) 8.4 10 ^3/uL (1.6-8.6); Neutrophils % (auto) 62.3 % (37.0-80.0); Red Blood Cells 4.27 10^6/uL (4.0-5.20); Red Cell Distribution Width 16.1 % (11.8-14.3); White Blood Cell 13.4 10^3/uL (4.4-10.8)
[2022-07-05] MEDS: SUCRALFATE 1 GM/10 ML ORAL SUSP PO SCH ×2 (06:46→11:30)
[2022-07-05] MEDS: ALPRAZolam 0.25 MG TAB PO PRN (06:48)
[2022-07-05] MEDS: MEROPENEM 1GM IVPB 100 ML IV SCH ×2 (06:49→14:00)
[2022-07-05 09:00] VITALS: BP 129/90
[2022-07-05] MEDS: METHADONE HCL 10 MG TAB PO SCH (09:25)
[2022-07-05] MEDS: PANTOPRAZOLE 40 MG/10 ML VIAL INJ IV SCH (09:25)
[2022-07-05] MEDS: METOPROLOL SUCCINATE XL 50 MG TAB PO SCH (09:26)
[2022-07-05] MEDS: IBUPROFEN 600 MG TAB PO SCH (10:00)
[2022-07-05] MEDS: LORATADINE 10 MG TAB PO SCH (10:00)
[2022-07-05] MEDS ORDERED: METH10T PO (11:05)
[2022-07-05] MEDS ORDERED: SUCR1TAB22 OR (11:05)
[2022-07-05] MEDS ORDERED: MICO2CRE7 PV (11:05)
[2022-07-05] MEDS ORDERED: METO-6 PO (11:05)
[2022-07-05] MEDS ORDERED: PANT40TA2 PO (11:05)
[2022-07-05] MEDS: ACCU-CHEK COMFORT CURVE STRIP VI SCH (11:30)
[2022-07-05 13:00] VITALS: BP 122/86
== END 2022-07-05 16:33 | disposition home or self-care (01) | DRG 720 ==
LOC: ER 11:07 → OVERFLOW 23:44 → TELE-EAST 06-24 19:03
PROVIDERS: ADMIT Nurse Practitioner Family; ATTEND Nurse Practitioner Acute Care
PROC: 0DB98ZX Excision of Duodenum, Via Natural or Artificial Opening Endoscopic, Diagnostic (ICD-10-PCS; principal; 2022-06-27 09:18)
DX: A41.9 Sepsis, unspecified organism (principal); E87.0 Hyperosmolality and hypernatremia; J18.9 Pneumonia, unspecified organism; K22.10 Ulcer of esophagus without bleeding; K76.0 Fatty (change of) liver, not elsewhere classified; I47.1 Supraventricular tachycardia; E86.0 Dehydration; E87.6 Hypokalemia; I10 Essential (primary) hypertension; K44.9 Diaphragmatic hernia without obstruction or gangrene; N20.0 Calculus of kidney; N30.90 Cystitis, unspecified without hematuria; E11.9 Type 2 diabetes mellitus without complications; E66.9 Obesity, unspecified; K27.9 Peptic ulcer, site unspecified, unspecified as acute or chronic, without hemorrhage or perforation; F11.23 Opioid dependence with withdrawal; G89.29 Other chronic pain; G47.00 Insomnia, unspecified; K21.00 Gastro-esophageal reflux disease with esophagitis, without bleeding; N83.209 Unspecified ovarian cyst, unspecified side; F17.210 Nicotine dependence, cigarettes, uncomplicated; Z20.822 Contact with and (suspected) exposure to COVID-19; Z79.899 Other long term (current) drug therapy; Z88.0 Allergy status to penicillin; Z88.1 Allergy status to other antibiotic agents; Z88.8 Allergy status to other drugs, medicaments and biological substances; Z68.32 Body mass index [BMI] 32.0-32.9, adult
CPT/HCPCS: 36415; 43239; 71275; 74176; 76700; 76775; 80048; 80053; 80061; 80307; 81001; 81025; 82962; 83036; 83605; 83615; 83735; 83835; 83970; 84132; 84443; 84550; 85007; 85025; 85027; 85652; 86038; 87040; 87086; 87426; 93306; 96361; 96365; 96375; 96376; 97110; 97116; 97163; 97530; C9113; G0378; J0696; J1815; J1885; J2185; J2250; J2405; J3480; J3490

== ENCOUNTER 2022-08-10 07:00 | Emergency (ER) | payer MEDICAID ==
[~2022-08-10] VITALS: Ht 162.6 cm; Wt 84.6 kg
[~2022-08-10 07:00] MED LIST changes: +CLON0.2T PO; -IBU800T; +METH10T PO; +METO-6 PO; +MICO2CRE7 PV; -OME20GT PO; +ONDA-144 PO; +PANT40TA2 PO; -PHEN1ELX6; +SUCR1TAB22 OR
[2022-08-10 09:04] VITALS: BP 107/72
== END 2022-08-10 08:47 | disposition home or self-care (01) ==
LOC: ER 07:00
DX: I45.81 Long QT syndrome (principal); F17.210 Nicotine dependence, cigarettes, uncomplicated; I10 Essential (primary) hypertension; Z87.442 Personal history of urinary calculi; Z88.6 Allergy status to analgesic agent; Z79.899 Other long term (current) drug therapy
CPT/HCPCS: 82962; 93005